=== PATIENT | male | born 1950 | race Caucasian/White ===

== ENCOUNTER → 2017-11-28 | Outpatient (CLI) | payer OTHER, MEDICARE | LOC: BHFA 11:30 | PROVIDERS: ATTEND Internal Medicine Interventional Cardiology | DX: R07.89 Other chest pain (principal); Z82.49 Family history of ischemic heart disease and other diseases of the circulatory system ==

== ENCOUNTER → 2018-03-19 | Outpatient (CLI) | payer OTHER, MEDICARE | LOC: CIMAGING 16:36 | PROVIDERS: ATTEND Family Medicine | DX: R07.81 Pleurodynia (principal); R93.7 Abnormal findings on diagnostic imaging of other parts of musculoskeletal system | CPT/HCPCS: 71100-PO ==

== ENCOUNTER → 2018-04-04 | Outpatient (CLI) | payer OTHER, MEDICARE | LOC: FIMAGING 09:00 | PROVIDERS: ATTEND Family Medicine | DX: M89.8X8 Other specified disorders of bone, other site (principal); M19.019 Primary osteoarthritis, unspecified shoulder; M51.36 Other intervertebral disc degeneration, lumbar region; M19.042 Primary osteoarthritis, left hand; M17.0 Bilateral primary osteoarthritis of knee | CPT/HCPCS: 78306; A9503 ==

== ENCOUNTER → 2018-04-18 | Outpatient (CLI) | payer OTHER, MEDICARE | LOC: FIMAGING 09:11 | PROVIDERS: ATTEND Family Medicine | DX: Z13.820 Encounter for screening for osteoporosis (principal); M85.89 Other specified disorders of bone density and structure, multiple sites; Z87.81 Personal history of (healed) traumatic fracture ==

== ENCOUNTER → 2018-05-16 | Outpatient (CLI) | payer OTHER, MEDICARE | LOC: CIMAGING 10:58 | PROVIDERS: ATTEND Family Medicine | DX: M89.9 Disorder of bone, unspecified (principal) | CPT/HCPCS: 71101-PO ==